=== PATIENT | male | born 1950 | race Caucasian/White ===

== ENCOUNTER 2018-06-21 12:12 | Inpatient (IN) | payer MEDICARE, MEDICAID ==
[~2018-06-21] VITALS: Ht 162.6 cm; Wt 85.5 kg
[~2018-06-21 12:12] MED LIST: AMLO5TAB88 PO; ATOR20TA65 PO; BRIM10DR2 OP; DOCU-138 PO; FERR-63 PO; GLYB2.5T4 PO; MECL-109 PO; Magnesium Oxide PO; PIOG30TA10 PO; SUCR1ORA2 PO; combigan EACHEYE
[2018-06-21 13:46] LABS: BASOPHILS % 0.4 % (0.0-2.0); EOSINOPHILS % 2.6 % (0.0-5.0); HEMATOCRIT. 43.3 % (42.0-52.0); HEMOGLOBIN. 14.6 g/dL (14.0-18.0); LYMPHOCYTES % 18.8 % (20.0-50.0); MEAN CORPUSCULAR HEMOGLOBIN 31.9 pg (28.0-32.0); MEAN CORPUSCULAR VOLUME 94.7 fL (80.0-94.0); MONOCYTES % 7.7 % (2.0-8.0); NEUTROPHILS % 70.5 % (40.0-76.0); PLATELET 121 x1000/uL (130-400); RED BLOOD CELL COUNT 4.57 mill/uL (4.7-6.1); RED CELL DISTRIBUTION WIDTH 14.4 % (11.6-14.6)
[2018-06-21 13:58] LABS: CHLORIDE 104 mEq/L (98-107)
[2018-06-21] MEDS ORDERED: DOPAMINE 400MG PREMIX 250 ML IV PRN (16:06)
[2018-06-21] MEDS ORDERED: DEXTROSE 50% WATER 50ML SYRINGE IV PRN ×2 (16:07→20:00)
[2018-06-21 16:29] VITALS: BP 145/60
[2018-06-21] MEDS ORDERED: LUBI24CA5 MT (16:42)
[2018-06-21] MEDS ORDERED: PIOG30TA10 MT (16:44)
[2018-06-21] MEDS ORDERED: ASPI-1158 MT (16:44)
[2018-06-21] MEDS ORDERED: TELM80TA8 MT (16:44)
[2018-06-21 17:00] VITALS: BP 145/52
[2018-06-21] MEDS: GLYBURIDE 5MG TABLET PO SCH (17:37)
[2018-06-21] MEDS: METFORMIN HCL 500MG TABLET PO SCH (17:38)
[2018-06-21 18:00] VITALS: BP 159/72
[2018-06-21 20:00] VITALS: BP 145/60
[2018-06-21] MEDS: ATORVASTATIN CALCIUM 20MG TABLET PO SCH (20:46)
[2018-06-21] MEDS: BLOOD SUGAR DIAGNOSTIC STRIP TEST SCH (20:47)
[2018-06-21] MEDS: AMLODIPINE 5MG TABLET PO SCH (20:47)
[2018-06-21] MEDS: INSULIN LISPRO 100 UNITS/ML SUBCUT SCH (20:47)
[2018-06-21 20:50] VITALS: BP 138/67
[2018-06-21 22:00] VITALS: BP 128/62
[2018-06-22] VITALS (13 sets, daily range): BP systolic 101–155; BP diastolic 44–76
[2018-06-22] MEDS: BLOOD SUGAR DIAGNOSTIC STRIP TEST SCH ×4 (06:25→21:11)
[2018-06-22] MEDS: GLYBURIDE 5MG TABLET PO SCH ×2 (06:28→17:17)
[2018-06-22 06:34] LABS: CHLORIDE 108 mEq/L (98-107)
[2018-06-22 06:35] LABS: BASOPHILS % 0.8 % (0.0-2.0); EOSINOPHILS % 3.6 % (0.0-5.0); HEMOGLOBIN. 13.8 g/dL (14.0-18.0); LYMPHOCYTES % 26.7 % (20.0-50.0); MEAN CORPUSCULAR HEMOGLOBIN 32.1 pg (28.0-32.0); MEAN CORPUSCULAR VOLUME 95.4 fL (80.0-94.0); MEAN PLATELET VOLUME 9.8 fl (7.4-10.4); NEUTROPHILS % 59.9 % (40.0-76.0); PLATELET 106 x1000/uL (130-400); RED CELL DISTRIBUTION WIDTH 14.6 % (11.6-14.6)
[2018-06-22 06:42] LABS: LDL CHOLESTEROL 59 mg/dL (5-100)
[2018-06-22 06:43] LABS: HDL CHOLESTEROL 35 mg/dL (40-59)
[2018-06-22] MEDS: INSULIN LISPRO 100 UNITS/ML SUBCUT SCH ×4 (07:04→21:12)
[2018-06-22] MEDS: METFORMIN HCL 500MG TABLET PO SCH ×2 (07:20→17:17)
[2018-06-22] MEDS: AMLODIPINE 5MG TABLET PO SCH ×2 (08:45→21:13)
[2018-06-22] MEDS: ATORVASTATIN CALCIUM 20MG TABLET PO SCH (21:12)
[2018-06-23] VITALS (10 sets, daily range): BP systolic 108–155; BP diastolic 56–84
[2018-06-23] MEDS: GLYBURIDE 5MG TABLET PO SCH ×2 (05:43→17:28)
[2018-06-23 05:44] LABS: CHLORIDE 105 mEq/L (98-107)
[2018-06-23] MEDS: BLOOD SUGAR DIAGNOSTIC STRIP TEST SCH ×4 (05:51→20:37)
[2018-06-23 06:12] LABS: BASOPHILS % 0.5 % (0.0-2.0); EOSINOPHILS % 3.4 % (0.0-5.0); HEMATOCRIT. 42.8 % (42.0-52.0); HEMOGLOBIN. 14.4 g/dL (14.0-18.0); LYMPHOCYTES % 26.5 % (20.0-50.0); MEAN CORPUSCULAR HEMOGLOBIN 32.1 pg (28.0-32.0); MEAN CORPUSCULAR VOLUME 95.6 fL (80.0-94.0); MEAN PLATELET VOLUME 10.1 fl (7.4-10.4); MONOCYTES % 9.2 % (2.0-8.0); NEUTROPHILS % 60.4 % (40.0-76.0); PLATELET 114 x1000/uL (130-400); RED BLOOD CELL COUNT 4.47 mill/uL (4.7-6.1); RED CELL DISTRIBUTION WIDTH 14.5 % (11.6-14.6)
[2018-06-23] MEDS: INSULIN LISPRO 100 UNITS/ML SUBCUT SCH ×4 (07:20→20:37)
[2018-06-23] MEDS: METFORMIN HCL 500MG TABLET PO SCH ×2 (07:56→17:28)
[2018-06-23] MEDS: AMLODIPINE 5MG TABLET PO SCH ×2 (07:56→20:37)
[2018-06-23] MEDS ORDERED: DIPHENHYDRAMINE 50MG/ML VIAL IV PRN (15:00)
[2018-06-23] MEDS: ATORVASTATIN CALCIUM 20MG TABLET PO SCH (20:37)
[2018-06-24] VITALS (7 sets, daily range): BP systolic 116–157; BP diastolic 50–84
[2018-06-24 06:10] LABS: BASOPHILS % 0.8 % (0.0-2.0); EOSINOPHILS % 3.8 % (0.0-5.0); HEMATOCRIT. 41.5 % (42.0-52.0); HEMOGLOBIN. 14.1 g/dL (14.0-18.0); LYMPHOCYTES % 18.2 % (20.0-50.0); MEAN CORPUSCULAR HEMOGLOBIN 32.4 pg (28.0-32.0); MEAN CORPUSCULAR VOLUME 95.1 fL (80.0-94.0); MEAN PLATELET VOLUME 9.8 fl (7.4-10.4); NEUTROPHILS % 68.2 % (40.0-76.0); PLATELET 116 x1000/uL (130-400); RED BLOOD CELL COUNT 4.36 mill/uL (4.7-6.1); RED CELL DISTRIBUTION WIDTH 14.1 % (11.6-14.6)
[2018-06-24] MEDS: BLOOD SUGAR DIAGNOSTIC STRIP TEST SCH (06:13)
[2018-06-24] MEDS: GLYBURIDE 5MG TABLET PO SCH (06:13)
[2018-06-24] MEDS: INSULIN LISPRO 100 UNITS/ML SUBCUT SCH (07:20)
[2018-06-24 07:38] LABS: CHLORIDE 105 mEq/L (98-107)
[2018-06-24] MEDS: METFORMIN HCL 500MG TABLET PO SCH (09:18)
[2018-06-24] MEDS: AMLODIPINE 5MG TABLET PO SCH (09:19)
[2018-06-24] MEDS ORDERED: POTASSIUM CHLORIDE 20MEQ TABLET SR PO SCH (11:00)
== END 2018-06-24 11:40 | disposition home or self-care (01) | DRG 310 ==
LOC: ER 12:12 → 3WST 13:50 → EDBEDREQSVC 14:04 → EDBEDREQTM 14:04 → EDBEDREQ 14:04 → ENRESERV 14:29
PROVIDERS: ADMIT Specialist; ATTEND Specialist
DX: R00.1 Bradycardia, unspecified (principal); I48.2 Chronic atrial fibrillation; I10 Essential (primary) hypertension; E78.5 Hyperlipidemia, unspecified; H40.9 Unspecified glaucoma; E11.9 Type 2 diabetes mellitus without complications; I27.20 Pulmonary hypertension, unspecified; I35.0 Nonrheumatic aortic (valve) stenosis; H54.8 Legal blindness, as defined in USA; Z88.8 Allergy status to other drugs, medicaments and biological substances; Z87.891 Personal history of nicotine dependence; Z79.899 Other long term (current) drug therapy; Z79.84 Long term (current) use of oral hypoglycemic drugs; Z82.49 Family history of ischemic heart disease and other diseases of the circulatory system; Z83.3 Family history of diabetes mellitus
CPT/HCPCS: 36415; 71045; 80048; 80061; 82962; 83036; 83735; 83880; 84443; 84484; 93005; 96372; 99285; J1200; J1815

== ENCOUNTER → 2020-09-30 | Outpatient (CLI) | payer MEDICARE, MEDICAID ==
[~2020-09-30] VITALS: Ht 162.6 cm; Wt 88.0 kg
[~2020-09-30] MED LIST changes: +ASPI-1406 MT; -BRIM10DR2 OP; +GLIP10TA10 PO; +LUBI24CA5 MT; -MECL-109 PO; +MECL-159 PO; +METF500T MT; +NETA2.5D EACHEYE; +PIOG30TA10 MT; +TELM1TAB6 MT; +TELM80TA8 MT; -combigan EACHEYE
[2020-09-30 11:03] VITALS: BP 153/63
[2020-09-30 11:04] VITALS: BP 153/63
== END | disposition home or self-care (01) ==
LOC: LAB 07:02
PROVIDERS: ATTEND Specialist
DX: Z01.812 Encounter for preprocedural laboratory examination (principal); R05 Cough; Z20.822 Contact with and (suspected) exposure to COVID-19
CPT/HCPCS: 87426